=== PATIENT | female | born 1975 | race Caucasian/White ===

== ENCOUNTER 2019-06-07 12:00 | Outpatient (CLI) | payer BC | END 2019-06-07 12:15 | disposition home or self-care (01) | LOC: D.MAMMO 12:00 | PROVIDERS: ATTEND Internal Medicine | DX: N63.24 Unspecified lump in the left breast, lower inner quadrant (principal) ==

== ENCOUNTER 2019-07-29 18:19 | Inpatient (IN) | payer BC ==
[~2019-07-29] VITALS: Ht 149.9 cm; Wt 76.4 kg
[2019-07-29 18:47] LABS: BASOPHILS 0.3 % (0-2); HEMATOCRIT 40.8 % (36.0-48.0); HEMOGLOBIN 13.2 g/dL (12-16); IMMATURE GRANULOCYTES 0.6 % (0-5); LYMPHOCYTES 34.5 % (15-50); MCH 29.1 pg (26.0-34.0); MCHC 32.4 g/dL (31.0-37.0); MCV 90.1 fL (80.0-100.0); MEAN PLATELET VOLUME 10.2 fL (7.4-10.4); MONOCYTES 5.5 % (2-11); NEUTROPHILS 58.1 % (40-80); PLATELET COUNT 421 10x3/uL (130-400); RBC 4.53 10x6/uL (4.00-5.40); RDW 13.6 % (11.5-14.5); WBC 19.6 10x3/uL (4.8-10.8)
[2019-07-29 18:51] LABS: ALBUMIN 3.9 g/dL (3.4-5.0); ANION GAP 17.7 mmol/L (8-16); BILIRUBIN - TOTAL 0.28 mg/dL (0.2-1.3); CALCIUM 8.6 mg/dL (8.5-10.1); CARBON DIOXIDE 20.2 mmol/L (21.0-32.0); PROTEIN - SERUM 7.8 g/dL (6.4-8.2)
[2019-07-29 18:55] LABS: POTASSIUM - SERUM 2.9 mmol/L (3.5-5.1)
--- NOTE | 2019-07-29 19:17 | NUR ---
HERRMANN INSERTED AFTER TWO ATTEMPTS - URINE SAMPLE TO LAB.
[2019-07-29 19:32] LABS: BACTERIA FEW /hpf (NEGATIVE); BILIRUBIN NEGATIVE (NEGATIVE); EPITHELIAL CELLS NSEEN /hpf (0-5); GLUCOSE NEGATIVE (NEGATIVE); KETONE NEGATIVE (NEGATIVE); NITRITE NEGATIVE (NEGATIVE); RED CELLS - URINE 0-5 /hpf (0-5); SPECIFIC GRAVITY 1.025 (1.005-1.020); UROBILINOGEN NORMAL (NORMAL); WHITE CELLS - URINE NSEEN /hpf (NEGATIVE)
--- NOTE | 2019-07-29 20:20 | NUR ---
PT NOW GOING TO OR.
--- NOTE | 2019-07-29 21:00 | NUR ---
PERSONAL BELONGINGS INCLUDING PHONE GATHERED AND PLACED IN BELONGINGS BAG. CONSENT FOR SURGERY SIGNED.
[2019-07-29 21:17] LABS: HCG URINE NEGATIVE (NEGATIVE)
[2019-07-30] VITALS (16 sets, daily range): BP systolic 90–124; BP diastolic 45–68; Ht 149.9 cm; Wt 76.4 kg
--- NOTE | 2019-07-30 00:30 | NUR ---
RECEIVED FROM PACU BY BED. ALERT AND ORIENTED X4. RESP SHALLOW, NONLABORED. O2 @ 2LNC. DSRG WITH KASSI NOTED TO LLE. PEDAL PULSES STRONG BILAT. NS @ 50 MLHR INFUSING IN LT FOREARM. VS STABLE. HERRMANN CATH PATENT AND DRAINING CLEAR YELLOW URINE. NO DISTRESS. DENIES PAIN. CL IN REACH. BED ALARM ON FOR PT SAFETY.
--- NOTE | 2019-07-30 03:12 | NUR ---
HAS RESTED WELL SO FAR THIS SHIFT. NO DISTRESS. V/S STABLE. CL IN REACH.
[2019-07-30 04:47] LABS: BASOPHILS 0.1 % (0-2); EOSINOPHILS 0.1 % (0-7); HEMATOCRIT 37.4 % (36.0-48.0); IMMATURE GRANULOCYTES 0.6 % (0-5); LYMPHOCYTES 8.3 % (15-50); MCH 29.1 pg (26.0-34.0); MCHC 32.1 g/dL (31.0-37.0); MCV 90.8 fL (80.0-100.0); MEAN PLATELET VOLUME 10.2 fL (7.4-10.4); MONOCYTES 1.8 % (2-11); NEUTROPHILS 89.1 % (40-80); PLATELET COUNT 368 10x3/uL (130-400); RBC 4.12 10x6/uL (4.00-5.40); RDW 13.7 % (11.5-14.5); WBC 16.6 10x3/uL (4.8-10.8)
[2019-07-30 05:27] LABS: ALBUMIN 3.4 g/dL (3.4-5.0); ALKALINE PHOSPHATASE 108 U/L (30-120); ALT (SGPT) 52 U/L (10-68); BILIRUBIN - TOTAL 0.38 mg/dL (0.2-1.3); CALC OSMOLALITY 278 mosm/kg (275-300); CALCIUM 7.6 mg/dL (8.5-10.1); CARBON DIOXIDE 22.6 mmol/L (21.0-32.0); CHLORIDE - SERUM 104 mmol/L (98-107); CREATININE - SERUM 0.8 mg/dL (0.6-1.3); GLUCOSE 173 mg/dL (74-106); PROTEIN - SERUM 6.9 g/dL (6.4-8.2); SODIUM 138 mmol/L (136-145); UREA NITROGEN 10 mg/dL (7-18); eGFR NON AFRICAN AMERICAN 83 mL/min (90-120)
[2019-07-30 05:30] LABS: POTASSIUM - SERUM 3.5 mmol/L (3.5-5.1)
--- NOTE | 2019-07-30 14:50 | MORECARE ---
CASE MANAGEMENT DISCHARGE SUMMARY PATIENT: ANITHA LEE UNIT: [id number] ADM DATE: 07/29/19 AGE: 43 : 75 SEX: F ROOM/BED: D.2202 AUTHOR: SAMIR CURTIS PHYSICIAN: REFERRING PHYSICIAN: MOOK NICOLAS DO DATE OF SERVICE: 07/30/19 Discharge Plan Patient Name: [facility]ITH[facility]EE [facility] [facility] 1975 Planned Disposition: Home or Self Care Anticipated Discharge Date: Discharge Date: Expected LOS: Initial Reviewer: [email or web address] Initial Review Date: 07/29/2019 Generated: 07/30/19 3:50 pm DCPIA - Discharge Planning Initial Assessment Updated by [email or web address]: Magda Vega on 07/30/19 2:47 pm * Is the patient Alert and Oriented? Yes * How many steps to enter\exit or inside your home? 20 * PCP SHANNAN HAWKINS ([facility]) * [facility] * Preadmission Environment Home with Family * ADLs Independent * Equipment None * List name and contact numbers for known caregivers / representatives who currently or will assist patient after discharge: MARGAUX LEE (SPOUSE) [phone] * Verbal permission to speak to the caregivers and representatives has been obtained from the patient. N/A * Community resources currently utilized None * Additional services required to return to the preadmission environment? No * Can the patient safely return to the preadmission environment? Yes * Has this patient been hospitalized within the prior 30 days at any hospital? No Patient Name: ANITHA LEE Page 18298 at 1450 All edits/amendments must be made on the electronic document DICTATION DATE: 07/30/19 1450 CUSTOMS APPRAISER: ROMMEL 07/30/19 1450 RPT#: [id number] DC DATE: STATUS: ADM IN [facility] [address] [place] [address] END OF REPORT
--- NOTE | 2019-07-30 15:00 | MORECARE ---
CASE MANAGEMENT DISCHARGE SUMMARY PATIENT: ANITHA LEE UNIT: [id number] ADM DATE: 07/29/19 AGE: 43 : 75 SEX: F ROOM/BED: D.2202 AUTHOR: SAMIR CURTIS PHYSICIAN: REFERRING PHYSICIAN: MOOK NICOLAS DO DATE OF SERVICE: 07/30/19 Discharge Plan Patient Name: ANITHA LEE Facility: [facility]:[place] : 1975 Planned Disposition: Home or Self Care Anticipated Discharge Date: Discharge Date: Expected LOS: Initial Reviewer: [email or web address] Initial Review Date: 07/29/2019 Generated: 07/30/19 4:00 pm Comments DCP- Discharge Planning Updated by [email or web address]: Magda Vega on 07/30/19 1:[address] Patient Name: ANITHA LEE Admission Status: ER Accout number: [id number] Admission Date: 07-29-2019 : 1975 Admission Diagnosis: Attending: MOOK NICOLAS Current LOS: 1 Anticipated DC Date: Planned Disposition: Home or Self Care Primary Insurance: [employer] OUT OF STATE Discharge Planning Comments: CM met with patient to complete initial dc planning assessment. CM educated patient on the CM role and verbal consent given by patient to complete assessment. Patient lives at home with her spouse and kids where she is independent with her care. At discharge patient plans to return home and feels this is a safe discharge. CM discussed availability of home health, rehab services, and medical equipment. She stated that her had access to a walker and would bring it to the hospital when she is discharged. She has a bedroom downstairs where she will stay so she does not have to go up the stairs. Patient denied known discharge needs at this time. CM will continue to follow and will assist as needed with dc plans/needs. Distribution Driver: Magda Vega DCPIA - Discharge Planning Initial Assessment Updated by [email or web address]: Magda Vega on 07/30/19 2:47 pm * Is the patient Alert and Oriented? Yes * How many steps to enter\exit or inside your home? 20 * PCP SHANNAN HAWKINS ([facility]) * [facility] * Preadmission Environment Home with Family * ADLs Independent * Equipment None * List name and contact numbers for known caregivers / representatives who currently or will assist patient after discharge: MARGAUX LEE (SPOUSE) [phone] * Verbal permission to speak to the caregivers and representatives has been obtained from the patient. N/A * Community resources currently utilized None * Additional services required to return to the preadmission environment? No * Can the patient safely return to the preadmission environment? Yes * Has this patient been hospitalized within the prior 30 days at any hospital? No Last DP export: 07/30/19 1:50 p Patient Name: ANITHA LEE Page [id number] at 1500 All edits/amendments must be made on the electronic document DICTATION DATE: 07/30/19 1500 ENVIRONMENTAL AID: ROMMEL 07/30/19 1500 RPT#: [id number] DC DATE: STATUS: ADM IN [facility] [address] [place] [address] END OF REPORT
[2019-07-31 01:30] VITALS: BP 84/50
[2019-07-31 04:26] LABS: HEMATOCRIT 33.9 % (36.0-48.0); HEMOGLOBIN 10.7 g/dL (12-16); MCH 28.8 pg (26.0-34.0); MCHC 31.6 g/dL (31.0-37.0); MCV 91.4 fL (80.0-100.0); MEAN PLATELET VOLUME 9.8 fL (7.4-10.4); RBC 3.71 10x6/uL (4.00-5.40)
[2019-07-31 06:27] VITALS: BP 90/50
--- NOTE | 2019-07-31 07:07 | OP ---
PATIENT NAME: ANITHA KIRKPATRICK MEDICAL RECORD: [id number] :75 LOCATION:[facility] [id number] ADMISSION DATE:07/29/19 SURGEON: RODO DODD DO DATE OF OPERATION: 07/29/2019 PROCEDURE PERFORMED: Left femur retrograde intramedullary nailing. PREOPERATIVE DIAGNOSIS: Displaced left femoral shaft fracture. POSTOPERATIVE DIAGNOSIS: Displaced left femoral shaft fracture. INDICATIONS: Ms. Kirkpatrick is a 43-year-old female who was playing baseball with her family and she stopped suddenly and felt a pop and then went down. She could not bear weight and it is when her called an ambulance and due to the pain, she could not bear weight and felt the deformity, brought to the ER. X-rays were taken and seen that she had a displaced femoral shaft fracture. She has not had any prior pain to this. No night sweats and no other breaks. She never broken bone in her body she said. 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 She did not complain of any other problems. I informed her the risks including infection, bleeding, damage to nerves and vessels in the area, need for further surgery, continued pain, malunion, nonunion, malrotation of femur, painful hardware, refracture, blood clots, and even . She signed the consent. SURGEON: Rodo Dodd DO DESCRIPTION OF PROCEDURE: The patient was taken to the operative suite, laid in supine position, given general anesthetic, sedated and intubated. She was given a gram of Ancef preoperatively. The left lower extremity was then prepped and draped in sterile fashion. Timeout was performed and everyone was in agreement with correct side, site, patient and procedure. I then began by making an incision over the distal portion of the knee right at the inferior pole of the patella. Careful dissection made down to the patellar tendon and the patellar tendon was then divided into half and opened up and the fat pad was partially removed. We got a starting point on AP and lateral in the notch of the femur and used the starting reamer for the nail and went into the femur. I then passed the guidewire up through as the physical therapy assistant instructor, Kendrick Mancera pulled traction and aligned the fracture. The B-tipped guidewire was passed up to the hip up into the lesser trochanter area where we measured to be a 300 and we used a 9 x 300 nail. I then began reaming first with an 8 up to an 11 and a 9 nail then was passed. I reduced the fracture nicely, seen to be in AP and lateral. I then put in 2 distal screws from lateral to medial and then once the nail was in proper position, a transverse screw was put in and then using perfect circles put in the proximal dynamic screw through the nail. We then irrigated out the knee with over 400 mL of normal saline and the other incisions on the lateral femur and on the anterior femur at the proximal portion were all irrigated. I then closed the patellar tendon with #1 Vicryl in a running stitch and the peritenon with 2-0 Vicryl in a running [id number] stitch. Kendrick Mancera then closed the skin on the inferior patella with a 2-0 Vicryl in an inverted interrupted fashion. I closed the other 2 holes with 2-0 Vicryl in an inverted interrupted fashion and then 4-0 Monocryl in a horizontal mattress fashion. We then closed the skin on the patellar tendon with 4-0 Monocryl in a running fashion. Steri-Strips were placed on that, Telfa and Tegaderm, Adaptic, 4 x 4's, ABD, Webril, Germán wrap were then placed on the knee, Telfa and Tegaderm were placed on the proximal incision. She was then awakened and taken to recovery in OPERATIVE REPORT [id number] ANITHA KIRKPATRICK stable condition. BLOOD LOSS: Minimal. COMPLICATIONS: None. TRANSINT:[id number] Voice Confirmation ID: [id number] DOCUMENT ID: [id number] RODO DODD DO at 0707 CC: [id number] DICTATION DATE: 07/29/19 7732 BOTANY TEACHER: 07/30/19 1147 ADM IN [facility] [id number] [place] [address]
[2019-07-31 08:00] VITALS: BP 94/43
[2019-07-31 12:00] VITALS: BP 93/63
[2019-07-31 16:00] VITALS: BP 95/52
--- NOTE | 2019-07-31 18:00 | NUR ---
PATIENT HERRMANN REMOVED. 8 ML REMOVED FROM BALLOON. TOLERATED WELL.
[2019-07-31 20:00] VITALS: BP 96/53
[2019-08-01 06:12] LABS: BASOPHILS 0.2 % (0-2); EOSINOPHILS 1.7 % (0-7); HEMATOCRIT 32.8 % (36.0-48.0); HEMOGLOBIN 10.3 g/dL (12-16); IMMATURE GRANULOCYTES 0.7 % (0-5); LYMPHOCYTES 43.3 % (15-50); MCH 28.5 pg (26.0-34.0); MCHC 31.4 g/dL (31.0-37.0); MCV 90.9 fL (80.0-100.0); MEAN PLATELET VOLUME 10.2 fL (7.4-10.4); MONOCYTES 8.5 % (2-11); NEUTROPHILS 45.6 % (40-80); PLATELET COUNT 340 10x3/uL (130-400); RBC 3.61 10x6/uL (4.00-5.40); RDW 13.9 % (11.5-14.5)
[2019-08-01 06:15] LABS: WBC 10.4 10x3/uL (4.8-10.8)
[2019-08-01 06:29] LABS: CALC OSMOLALITY 280 mosm/kg (275-300); CALCIUM 7.5 mg/dL (8.5-10.1); CARBON DIOXIDE 27.6 mmol/L (21.0-32.0); CHLORIDE - SERUM 108 mmol/L (98-107); CREATININE - SERUM 0.6 mg/dL (0.6-1.3); POTASSIUM - SERUM 3.2 mmol/L (3.5-5.1); SODIUM 141 mmol/L (136-145); UREA NITROGEN 13 mg/dL (7-18); eGFR NON AFRICAN AMERICAN > 90 mL/min (90-120)
[2019-08-01 06:30] LABS: GLUCOSE 92 mg/dL (74-106)
[2019-08-01] MEDS ORDERED: VISTARIL50 MG PO (08:19)
[2019-08-01] MEDS ORDERED: OXYCODONE HCL5 M1 PO (08:19)
[2019-08-01] MEDS ORDERED: BAYER CHEWABLE81 MG PO (08:19)
[2019-08-01 08:34] VITALS: BP 99/53
--- NOTE | 2019-08-01 10:01 | MORECARE ---
CASE MANAGEMENT DISCHARGE SUMMARY PATIENT: ANITHA LEE UNIT: [id number] ADM DATE: 07/29/19 AGE: 43 : 75 SEX: F ROOM/BED: D.2202 AUTHOR: SAMIR CURTIS PHYSICIAN: REFERRING PHYSICIAN: MOOK NICOLAS DO DATE OF SERVICE: 08/01/19 Discharge Plan Patient Name: ANITHA LEE [facility] : 1975 Planned Disposition: Home or Self Care Anticipated Discharge Date: Discharge Date: Expected LOS: Initial Reviewer: [email or web address] Initial Review Date: 07/29/2019 Generated: 08/01/19 11:01 am Comments DCP- Discharge Planning Updated by [email or web address]: Sisi Buck on 08/01/19 8:[address] Patient Name: ANITHA LEE Encounter No: [id number] : 1975 Primary Insurance: [employer] OUT OF STATE Anticipated DC Date: Planned Disposition: Home or Self Care External Planned Provider: : DCP follow-up note: Patient and family in agreement with discharge plan. No changes to plan. HAS WALKER AT HOME. Case management will follow and assist as needed. Sisi Buck DCP- Discharge Planning Updated by [email or web address]: Magda Vega on 07/30/19 1:[address] Patient Name: ANITHA LEE Admission Status: ER Accout number: [id number] Admission Date: 07-29-2019 : 1975 Admission Diagnosis: Attending: MOOK NICOLAS Current LOS: 1 Anticipated DC Date: Planned Disposition: Home or Self Care Primary Insurance: [employer] OUT OF STATE Discharge Planning Comments: CM met with patient to complete initial dc planning assessment. CM educated patient on the CM role and verbal consent given by patient to complete assessment. Patient lives at home with her spouse and kids where she is independent with her care. At discharge patient plans to return home and feels this is a safe discharge. CM discussed availability of home health, rehab services, and medical equipment. She stated that her had access to a walker and would bring it to the hospital when she is discharged. She has a bedroom downstairs where she will stay so she does not have to go up the stairs. Patient denied known discharge needs at this time. CM will continue to follow and will assist as needed with dc plans/needs. Manager E Learning: Magda Vega DCPIA - Discharge Planning Initial Assessment Updated by [email or web address]: Magda Vega on 07/30/19 2:47 pm * Is the patient Alert and Oriented? Yes * How many steps to enter\exit or inside your home? 20 * PCP SISI HAWKINS ([facility]) * [facility] * Preadmission Environment Home with Family * ADLs Independent * Equipment None * List name and contact numbers for known caregivers / representatives who currently or will assist patient after discharge: MARGAUX LEE (SPOUSE) [phone] * Verbal permission to speak to the caregivers and representatives has been obtained from the patient. N/A * Community resources currently utilized None * Additional services required to return to the preadmission environment? No * Can the patient safely return to the preadmission environment? Yes * Has this patient been hospitalized within the prior 30 days at any hospital? No Last DP export: 07/30/19 2:00 p Patient Name: ANITHA LEE Page 43801 at 1001 All edits/amendments must be made on the electronic document DICTATION DATE: 08/01/19 100 CRIME PREVENTION WORKER: ROMMEL 08/01/19 1001 RPT#: [id number] DC DATE: STATUS: ADM IN [facility] [address] [place] [address] END OF REPORT
--- NOTE | 2019-08-01 10:15 | NUR ---
UP IN CHAIR, NO DISTRESS NOTED, SL IN PLACE, DRESSING TO LEFT KNEE AREA, CONT TO MONITOR
--- NOTE | 2019-08-01 11:00 | NUR ---
IV REMOVED, TIP INTACT, DC PAPERS REVIEWED, VOICED N O CONERNS, PROVIDED RX
--- NOTE | 2019-08-01 14:13 | MORECARE ---
CASE MANAGEMENT DISCHARGE SUMMARY PATIENT: ANITHA LEE UNIT: [id number] ADM DATE: 07/29/19 AGE: 43 : 75 SEX: F ROOM/BED: D.2202 AUTHOR: SAMIR CURTIS PHYSICIAN: REFERRING PHYSICIAN: MOOK NICOLAS DO DATE OF SERVICE: 08/01/19 Discharge Plan Patient Name: ANITHA LEE Facility: [facility]:[place] : 1975 Planned Disposition: Home or Self Care Anticipated Discharge Date: Discharge Date: 08/01/2019 Expected LOS: Initial Reviewer: [email or web address] Initial Review Date: 07/29/2019 Generated: 08/01/19 3:12 pm Comments DCP- Discharge Planning Updated by [email or web address]: Sisi Buck on 08/01/19 8:[address] Patient Name: ANITHA LEE Encounter No: [id number] : 1975 Primary Insurance: [employer] OUT OF STATE Anticipated DC Date: Planned Disposition: Home or Self Care External Planned Provider: : DCP follow-up note: Patient and family in agreement with discharge plan. No changes to plan. HAS WALKER AT HOME. Case management will follow and assist as needed. Sisi Buck DCP- Discharge Planning Updated by [email or web address]: Magda Vega on 07/30/19 1:[address] Patient Name: ANITHA LEE Admission Status: ER Accout number: [id number] Admission Date: 07-29-2019 : 1975 Admission Diagnosis: Attending: MOOK NICOLAS Current LOS: 1 Anticipated DC Date: Planned Disposition: Home or Self Care Primary Insurance: [employer] OUT OF STATE Discharge Planning Comments: CM met with patient to complete initial dc planning assessment. CM educated patient on the CM role and verbal consent given by patient to complete assessment. Patient lives at home with her spouse and kids where she is independent with her care. At discharge patient plans to return home and feels this is a safe discharge. CM discussed availability of home health, rehab services, and medical equipment. She stated that her had access to a walker and would bring it to the hospital when she is discharged. She has a bedroom downstairs where she will stay so she does not have to go up the stairs. Patient denied known discharge needs at this time. CM will continue to follow and will assist as needed with dc plans/needs. Stripper And Taper: Magda Vega DCPIA - Discharge Planning Initial Assessment Updated by [email or web address]: Magda Vega on 07/30/19 2:47 pm * Is the patient Alert and Oriented? Yes * How many steps to enter\exit or inside your home? 20 * PCP SISI HAWKINS ([facility]) * [facility] * Preadmission Environment Home with Family * ADLs Independent * Equipment None * List name and contact numbers for known caregivers / representatives who currently or will assist patient after discharge: MARGAUX LEE (SPOUSE) [phone] * Verbal permission to speak to the caregivers and representatives has been obtained from the patient. N/A * Community resources currently utilized None * Additional services required to return to the preadmission environment? No * Can the patient safely return to the preadmission environment? Yes * Has this patient been hospitalized within the prior 30 days at any hospital? No Last DP export: 08/01/19 9:01 a Patient Name: ANITHA LEE Page 89858 at 1413 All edits/amendments must be made on the electronic document DICTATION DATE: 08/01/191411 MUNICIPAL ENGINEER: ROMMEL 08/01/191411 [facility]#: [id number] DC DATE:08/01/19 STATUS: DIS IN [facility] [address] [place] [address] END OF REPORT
== END 2019-08-01 11:50 | disposition home or self-care (01) | DRG 482 ==
LOC: D.ER 18:19 → D.MS 19:11
PROVIDERS: Family Medicine; Internal Medicine Nephrology; Orthopaedic Surgery; ADMIT Family Medicine; ATTEND Family Medicine
PROC: 0QH936Z Insertion of Intramedullary Internal Fixation Device into Left Femoral Shaft, Percutaneous Approach (ICD-10-PCS; principal; 2019-07-29 20:30)
DX: S72.302A Unspecified fracture of shaft of left femur, initial encounter for closed fracture (principal); X50.0XXA Overexertion from strenuous movement or load, initial encounter; E87.6 Hypokalemia; D72.829 Elevated white blood cell count, unspecified; Z87.891 Personal history of nicotine dependence; E55.9 Vitamin D deficiency, unspecified